=== PATIENT | male | born 1965 | race Caucasian/White ===

== ENCOUNTER 2018-01-07 20:02 | Emergency (ER) | payer MEDICAID ==
[~2018-01-07] VITALS: Ht 175.3 cm; Wt 99.8 kg
--- NOTE | 2018-01-08 17:58 | EKG ---
[facility] [address] [facility] [place] [address] Signed Normal sinus rhythm Normal ECG No previous ECGs available Confirmed by JENNIFER PIERCE MD ([id number]) on 01/08/2018 5:58:04 PM Electronically Signed By: JENNIFER PIERCE MD 01/08/18 1758 PATIENT NAME: ZACKERY OCHOA Electrocardiogram DATE OF : 63 PHYSICIAN: JENNIFER PIERCE MD REPORT #: [id number] REPORT IS CONFIDENTIAL AND NOT TO BE RELEASED WITHOUT AUTHORIZATION
== END 2018-01-07 23:45 | disposition left against medical advice (07) ==
LOC: ED 20:02
DX: F07.81 Postconcussional syndrome (principal); S30.1XXA Contusion of abdominal wall, initial encounter; F19.10 Other psychoactive substance abuse, uncomplicated; R45.851 Suicidal ideations; I10 Essential (primary) hypertension; Z88.5 Allergy status to narcotic agent; W01.10XA Fall on same level from slipping, tripping and stumbling with subsequent striking against unspecified object, initial encounter
CPT/HCPCS: 70450; 74177; 80053; 84484; 85025; 85610; 85730; 93005; 93010; 99284; G0480; Q9967